=== PATIENT | male | born 1975 | race Caucasian/White ===

== ENCOUNTER → 2017-11-09 | Outpatient (CLI) | payer BC ==
[~2017-11-09] MED LIST: AMLO-99 PO; ATOR40TA24 PO; FLUT16SP19 NS; FLUT1DIS28 IH; MONT10TA PO; PRED-1 PO
[2017-11-09 14:30] LABS: PLATELET COUNT, AUTOMATED 302 K/uL (150-450)
--- NOTE | 2017-11-09 14:34 | EKG ---
FAC[place] [facility] [place]IENT NAME: RAFAEL WILLIS : [id number] MR: [id number] V: [id number] EXAM DATE: ORDERING PHYSICIAN: GAVI RUBIO TECHNOLOGIST: LIYA INTERIANO Test Reason : BLURRY VISION Blood Pressure : / mmHG Vent. Rate : 094 BPM Atrial Rate : 094 BPM P-R Int : 142 ms QRS Dur : 100 ms QT Int : 366 ms P-R-T Axes : 062 024 055 degrees QTc Int : 457 ms Normal sinus rhythm Normal ECG No previous ECGs available Referred By: GAVI RUBIO Confirmed By:
== END ==
LOC: LAB 13:54
PROVIDERS: ATTEND Nurse Practitioner Primary Care
DX: E78.00 Pure hypercholesterolemia, unspecified (principal); R53.83 Other fatigue; R42 Dizziness and giddiness; R35.0 Frequency of micturition
CPT/HCPCS: 36415; 81001; 82040; 82247; 82310; 82374; 82435; 82465; 82565; 82947; 83718; 84075; 84132; 84155; 84295; 84443; 84450; 84460; 84478; 84520; 85025

== ENCOUNTER → 2017-11-30 | Outpatient (REF) | payer BC | LOC: ZZSENDIN 17:11 | PROVIDERS: ATTEND Family Medicine | DX: I10 Essential (primary) hypertension (principal) | CPT/HCPCS: 83735 ==

== ENCOUNTER → 2018-01-18 | Outpatient (CLI) | payer BC ==
--- NOTE | 2018-01-18 16:07 | RADIOLOGY IMAGING REPORT ---
FACILITY: [facility] PATIENT NAME: Galileo Farooq : 1975 MR: [id number] V: [id number] EXAM DATE: ORDERING PHYSICIAN: ALESSANDRA FISHER TECHNOLOGIST: Location: [facility] - [place] Patient: Galileo Farooq : 1975 Visit/Account:[id number] Date of Sevice: 01/18/2018 GALLBLADDER HISTORY: Right upper quadrant pain x3-4 weeks COMPARISON: CT February 14, 2007 FINDINGS: Gallbladder: Unremarkable; no stones or sludge. Liver: There are several tiny cysts noted within the liver Common duct: Normal, 2.8 mm diameter. Pancreas: Partially obscured by bowel, visualized aspects unremarkable. Right kidney: Right kidney appears unremarkable as imaged measuring 12 cm in length Upper abdominal aorta and IVC: Patent. Ascites: None visualized. IMPRESSION: Unremarkable right upper quadrant ultrasound other than incidental note of several tiny hepatic cysts Report Dictated By: Norma Cole MD at 01/18/2018 4:01 PM Report E-Signed By: Norma Cole MD at 01/18/2018 4:03 PM WSN:[email or web address]
== END ==
LOC: US 00:52
PROVIDERS: ATTEND Family Medicine
DX: K76.89 Other specified diseases of liver (principal)
CPT/HCPCS: 76705

== ENCOUNTER → 2018-09-25 | Outpatient (REF) | payer BC ==
[~2018-09-25] MED LIST changes: +AMLO-113 PO; -AMLO-99 PO
== END ==
LOC: ZZSENDIN 16:45
PROVIDERS: ATTEND Family Medicine
DX: E78.00 Pure hypercholesterolemia, unspecified (principal)
CPT/HCPCS: 82465; 83695; 83718; 84478; 86140